=== PATIENT | female | born 1990 ===

== ENCOUNTER 2017-10-14 05:16 | Day surgery (SDC) | payer OTHER ==
[~2017-10-14 05:16] MED LIST: ALDACTONE100 MG PO; ARMOUR THYROID240 MG PO; MULTI VITAMIN1 EACH PO; [UNRECOGNIZED DRUG - OTHER] PO
== END 2017-10-14 12:05 | disposition home or self-care (01) ==
LOC: CIR.AMB 05:16
DX: D25.0 Submucous leiomyoma of uterus (principal); Z30.432 Encounter for removal of intrauterine contraceptive device